=== PATIENT | male | born 1940 | race Caucasian/White ===

== ENCOUNTER 2017-05-05 22:45 | Inpatient (IN) ==
[2017-05-05 23:28] LABS: Basophils % 0.2 %; Eosinophils % 0.1 %; Hematocrit 41.2 % (37.5-50.1); Hemoglobin 13.6 g/dL (12.9-16.9); Immature Granulocytes % 0.2 % (0-4); Lymphocytes # 1.3 K/mcL (0.6-4.6); Lymphocytes % 12.5 %; Mean Corpuscular Hemoglobin 31.3 pg (28.0-33.3); Mean Corpuscular Volume 94.9 fL (83.0-100.0); Mean Platelet Volume 9.1 fL (9.4-12.4); Monocytes # 0.8 K/mcL (0.0-1.3); Monocytes % 7.3 %; Neutrophils # 8.3 K/mcL (1.6-8.9); Platelet Count 157 K/mcL (140-400); Red Blood Count 4.34 M/mcL (4.19-5.50); Red Cell Distribution Width 13.8 % (11.5-14.5); Segmented Neutrophils % 79.7 %
[2017-05-05 23:34] LABS: INR 1.1; Prothrombin Time 12.4 Seconds (9.4-12.1)
[2017-05-05 23:37] LABS: Activated Partial Thrombo Time 25.1 Seconds (26.0-36.0)
[2017-05-05 23:40] LABS: BUN/Creatinine Ratio 34 (6-26); Blood Urea Nitrogen 28 mg/dL (8-26); Calcium 9.3 mg/dL (8.6-10.8); Carbon Dioxide 23 mEq/L (19-29); Chloride 107 mEq/L (98-109); Glucose 129 mg/dL (70-99); Osmolality,Calculated 295 (280-300); Potassium 3.9 mEq/L (3.5-4.5); Sodium 139 mEq/L (136-145); eGFR For African Americans > 60 (> 60); eGFR For Non-African Americans > 60 (> 60)
--- NOTE | 2017-05-05 23:48 | Emergency Department Note ---
Disposition Clinical Impression: Fracture of hip Qualifiers: Encounter type: initial encounter Fracture type: closed Laterality: left Qualified Code(s): S72.002A - Fracture of unspecified part of neck of left femur , initial encounter for closed fracture Disposition: Admitted As Inpatient Condition: Good Forms: ED Satisfaction Letter Time of Disposition: 23:51 General Adult HPI - General Chief complaint: ED Extremity Injury, Lower Stated complaint: left hip fracture Time Seen by Provider: 05/05/17 22:47 Source: patient Mode of arrival: EMS Limitations: language barrier Nursing Notes Reviewed: Yes Vital Signs Reviewed: Yes - History of Present Illness HPI Narrative: Patient presents from the [facility] after being evaluated for a fall. Patient stumbled over his walker today following to the ground in his left hip. Sensation is unable to move his left hip without severe pain. Patient denies any head injury, loss of consciousness has some skin tears to the extremities but denies any other symptoms or complaints. [facility] evaluated and said that he had intertrochanteric fracture and sent him over here for surgical evaluation. No other issues during her evaluation. Onset (ago): Just TOURS CAPTAIN Location: left, lower extremity Radiation: non-radiation Pain Severity: moderate Pain Scale: 2 Quality: sharp Consistency: constant Improves with: immobilization, rest Worsens with: movement Associated symptoms: Reports: denies other symptoms Treatments Prior to Arrival: none - Related Data Allergies Allergy/AdvReac Type Severity Reaction Status Date / Time morphine AdvReac Hallucinati Verified 05/05/17 22:51 ng All systems ED: reviewed and negative except as stated. Cardiovascular: Denies: chest pain, palpitations, dyspnea on exertion Respiratory: Denies: cough, dyspnea, wheezes Gastrointestinal: Denies: nausea, vomiting, diarrhea, constipation Genitourinary: Denies: dysuria, frequency Musculoskeletal: Denies: back pain, neck pain Neurological: Denies: headache, weakness Endocrine: Denies: fatigue Hematological/Lymphatic: Denies: easy bleeding, easy bruising Past Medical History - Past Medical History Attestation: Yes The following information was validated with the patient. Source: patient Medical history: Reports: arthritis, DVT, hyperlipidemia, other Psychiatric history: Reports: anxiety, depression - Social History Smoking Status: Never smoker Smokeless Tobacco Status: No Alcohol use: Reports: none Drug use: Reports: none Physical Exam - General Limitations: language barrier General appearance: alert, in no apparent distress - Head Head exam: atraumatic, normocephalic, normal inspection - Eye Eye exam: Present: normal appearance, PERRL, EOMI. Absent: miosis, mydriasis - ENT ENT exam: normal exam, normal oropharynx, mucous membranes moist - Neck Neck exam: Present: normal inspection, full ROM, trachea midline. Absent: tenderness - Chest Chest inspection: Present: normal inspection, symmetric chest wall rise - Respiratory Respiratory exam: Present: normal lung sounds bilaterally - Cardiovascular Cardiovascular exam: Present: regular rate, normal rhythm, normal heart sounds - Abdominal Exam Abdominal exam: Present: soft - Extremities Exam Extremities exam: Present: normal inspection, full ROM, tenderness (Tenderness left hip with external rotation mild shortening otherwise normal exam), normal capillary refill - Back Exam Back exam: Present: normal inspection - Neurological Exam Neurological exam: Present: alert, oriented X3, CN II-XII intact - Skin Skin exam: Present: warm, dry, intact, normal color Course Course Narrative: Patient seen and examined the time of arrival by EMS. Patient seen at the [facility] for mechanical fall. Patient advised on an intertrochanteric fracture. Imaging results reviewed at the time of arrival. No labs available time. Patient is on aspirin denied any head trauma no other injuries or complaints. He is up-to-date on his tetanus within the last year. Patient has full range of motion of the right lower extremity pelvis appears to be stable left hip is tender palpation with external rotation of the hip. Capillary refills were inspected and PT pulses and good sensation is noted in the bilateral lower extremities. No signs of trauma to the chest wall lungs are clear heart is regular abdomen is soft. There is mild tenderness to the left elbow with abrasion but otherwise no other visible signs of laceration or injury. Patient has no signs of trauma to the head pupils are equal round reactive to light. Labs including type and screen, CBC, sure this time for screening evaluation. Imaging of the abdomensystem. Consult placed orthopedic on-call physician Dr. Gonsalez. He will be admitted to the hospital service for definitive management. Patient is otherwise stable family form and that controlled this plan. pain Medication be provided as needed - Reevaluation(s) Reevaluation #1: Hospitalist Dr. wellington and I reviewed the patient's presentation symptoms and medical history. No other concerns or issues at this time. Screening labs reviewed. Patient is stable to time of admission for hip fracture Time: 23:53 Vital Signs Temperature 97.6 F 05/05/17 22:46 Pulse Rate 65 05/05/17 22:46 Respiratory Rate 18 05/05/17 22:46 Blood Pressure 159/96 05/05/17 22:46 O2 Sat by Pulse Oximetry 93 05/05/17 22:46 Temperature 97.6 F 05/05/17 22:46 Pulse Rate 65 05/05/17 22:46 Respiratory Rate 18 05/05/17 22:46 Blood Pressure 159/96 05/05/17 22:46 O2 Sat by Pulse Oximetry 93 05/05/17 22:46 Oxygen Delivery Oxygen Delivery Room Air Medical Decision Making - MDM Narrative Medical decision making narrative: Left hip fracture, mechanical fall - Medical Records Medical records reviewed: Yes I reviewed the patient's medical records. - Lab Data Lab results reviewed: Yes I reviewed the patient's lab results. Result diagrams: 05/05/17 23:22 05/05/17 23:22 Lab Results 05/05/17 05/05/17 05/05/17 Range/Units 23:22 23:22 23:22 WBC 10.3 (4.3-11.1) K/mcL RBC 4.34 (4.19-5.50) M/mcL Hgb 13.6 (12.9-16.9) g/dL Hct 41.2 (37.5-50.1) % MCV 94.9 (83.0-100.0) fL MCH 31.3 (28.0-33.3) pg MCHC 33.0 (31.6-35.5) g/dL RDW 13.8 (11.5-14.5) % Plt Count 157 (140-400) K/mcL MPV 9.1 L (9.4-12.4) fL Immature Gran % 0.2 (0-4) % Seg Neutrophils % 79.7 % Lymphocytes % 12.5 % Monocytes % 7.3 % Eosinophils % 0.1 % Basophils % 0.2 % Neutrophils # 8.3 (1.6-8.9) K/mcL Lymphocytes # 1.3 (0.6-4.6) K/mcL Monocytes # 0.8 (0.0-1.3) K/mcL Eosinophils # 0.0 (0.0-0.6) K/mcL Basophils # 0.0 (0.0-0.2) K/mcL PT 12.4 H (9.4-12.1) Seconds INR 1.1 APTT 25.1 L (26.0-36.0) Seconds Sodium 139 (136-145) mEq/L Potassium 3.9 (3.5-4.5) mEq/L Chloride 107 (98-109) mEq/L Carbon Dioxide 23 (19-29) mEq/L BUN 28 H (8-26) mg/dL Creatinine 0.83 (0.72-1.25) mg/dL Est GFR ( Amer) > 60 (> 60) Est GFR (Non-Af Amer) > 60 (> 60) BUN/Creatinine Ratio 34 H (6-26) Glucose 129 H (70-99) mg/dL Calculated Osmolality 295 (280-300) Calcium 9.3 (8.6-10.8) mg/dL - Radiology Data Radiology results reviewed: Yes I reviewed the patient's radiology results. Imaging from outside hospital - EKG Data EKG #1 EKG attestation: Yes I reviewed and interpreted this EKG. EKG shows normal: sinus rhythm, axis, intervals, QRS complexes, ST-T waves Rate: normal Rhythm: NSR [place]/QRS: normal When compared to previous EKG there are: previous EKG unavailable Interpretation: nonspecific ST-T wave changes
[2017-05-06] MEDS ORDERED: *HR* HYDROmorphone (PF) 1 MG/ML SYRINGE IVP ONE (00:20)
[2017-05-06] MEDS ORDERED: *HR* OxyCODONE/APAP 5/325 TABLET PO PRN (05:49)
[2017-05-06] MEDS: *HR* HYDROmorphone (PF) 1 MG/ML SYRINGE IVP PRN ×5 (06:03→18:20)
[2017-05-06] MEDS: 0.9 % Sodium Chloride 1,000 ML IVC SCH ×2 (06:04→20:44)
--- NOTE | 2017-05-06 07:54 | Orthopedic Consult Note ---
Date of Encounter: 05/06/17 Time of Encounter: 07:53 History of Present Illness HPI: Mr. Sommers is a 77 year old male Status post fall yesterday while getting something out of his truck. Injured left hip admitted with left hip fracture from ER. Patient denies head trauma normally walks with a walker or cane. Physical exam Alert and oriented 3 Left lower extremity Shortened external rotated Neurovascular intact Decreased range of motion secondary to pain X-rays reviewed left intertrochanteric hip fracture recommendation for surgical fixation Discussed risks benefits as well as recovery with family and patient Past Med Surg Social Fam HX - Past Medical History Medical history: arthritis, DVT, hyperlipidemia, other Psychiatric history: anxiety, depression - Past Surgical History Surgical History: cholecystectomy, herniorrhaphy, orthopedic, other - Social History Smoking Status: Never smoker Smokeless Tobacco Status: No Alcohol use: none Drug use: none - Family History Mother Living Status: Hx Family Cancer: Yes (colon cancer) Brother Living Status: Hx Family Cancer: Yes (colon cancer) Medications and Allergies Allergies morphine Adverse Reaction (Verified 05/05/17 22:51) Hallucinating All Systems Reviewed: A 10-system review of systems was performed and is negative for pertinent findings except as documented above in the HPI. Physical Exam - Constitutional Vitals: Temp Pulse Resp BP Pulse Ox 97.7 F 68 16 157/86 95 05/06/17 06:33 05/06/17 06:33 05/06/17 06:33 05/06/17 06:33 05/06/17 06:33 Results - Labs Result Diagrams: 05/05/17 23:22 05/05/17 23:22 Labs: Abnormal lab results MPV 9.1 fL (9.4-12.4) L 05/05/17 23:22 PT 12.4 Seconds (9.4-12.1) H 05/05/17 23:22 APTT 25.1 Seconds (26.0-36.0) L 05/05/17 23:22 BUN 28 mg/dL (8-26) H 05/05/17 23:22 BUN/Creatinine Ratio 34 (6-26) H 05/05/17 23:22 Glucose 129 mg/dL (70-99) H 05/05/17 23:22 All other labs normal. Consult Discharge Plan - Plan [facility] Care Provider[facility] -
--- NOTE | 2017-05-06 18:26 | Internal Med History&Physical ---
Date of Encounter: 05/06/17 Time of Encounter: 18:24 Assessment and Plan (1) Fracture of hip Current visit: Yes Status: Acute Acute left intertrochanteric hip fracture status post mechanical fall. Patient does not seem to have any chronic cardiopulmonary comorbidities, good functional status. Pain control with when necessary oral oxycodone and IV Dilaudid. NPO past midnight. PT/OT evaluation post surgery. DVT prophylaxis. Patient is at low to moderate perioperative risk for planned hip fixation surgery. Qualifiers: Encounter type: initial encounter Fracture type: closed Laterality: left Qualified Code(s): S72.002A - Fracture of unspecified part of neck of left femur, initial encounter for closed fracture (2) Osteoarthritis Current visit: Yes Status: Chronic Qualifiers: Osteoarthritis location: multiple joints Osteoarthritis type: primary Qualified Code(s): M15.0 - Primary generalized (osteo)arthritis (3) Anxiety Current visit: Yes Status: Chronic continue [RN benzodiazepines. (4) Depression Current visit: Yes Status: Chronic Qualifiers: Depression Type: unspecified Qualified Code(s): F32.9 - Major depressive disorder, single episode, unspecified Internal Medicine - H&P: HPI Chief complaint: Left hip pain Admitted From: Emergency Dept Plans for Post Hospital Care: Transfer Inp Rehab Fac History of present illness: Mr. Sommers is a 77 year old male with no significant past medical history was sent from urgent care at the [facility] for evaluation of left hip pain and fracture. Patient was doing well until yesterday afternoon when he sustained a mechanical fall while ambulating with his walker and felt a sharp pain in his left hip. He has been unable to get up or bear weight on his left leg without pain. He is otherwise ADL independent, ambulates with a walker and reports that he still drives. He has no history of coronary artery disease, [place] or congestive heart failure. Reports no exertional chest pain, dyspnea, wheezing or cough. Past Med Surg Social Fam HX - Past Medical History Medical history: arthritis, DVT, hyperlipidemia, other Psychiatric history: anxiety, depression - Past Surgical History Surgical History: cholecystectomy, herniorrhaphy, knee replacement (Bilateral total knee replacement), orthopedic, other - Social History Smoking Status: Never smoker Smokeless Tobacco Status: No Alcohol use: none Drug use: none Occupational status: retired Current living situation: Home, With Family Activity Level: Uses cane/walker Recent Out of Country Travel Within the Last 8 Weeks: No - Family History Mother Living Status: Hx Family Cancer: Yes (colon cancer) Brother Living Status: Hx Family Cancer: Yes (colon cancer) Internal Medicine - H&P: Meds ALPRAZolam [Xanax 0.5 MG Tablet] 0.5 mg PO TID PRN 05/06/17 [History] Capsaicin [Arthritis Pain Relief] 1 appl TP QID 05/06/17 [History] Escitalopram [Lexapro] 10 mg PO DAILY 05/06/17 [History] Lisinopril [Zestril] 20 mg PO DAILY 05/06/17 [History] [place]-3/Dha/Epa/Fish Oil [Fish Oil 1,000 mg Softgel] 1,000 mg PO DAILY 05/06/17 [History] Omeprazole [PriLOSEC] 20 mg PO DAILY 05/06/17 [History] Ranitidine HCl [Zantac] 300 mg PO DAILY 05/06/17 [History] Selenium 200 mcg PO DAILY 05/06/17 [History] Terazosin HCl 4 mg PO HS 05/06/17 [History] Ursodiol 300 mg PO BID 05/06/17 [History] Zinc Acetate [Galzin] 50 mg PO DAILY 05/06/17 [History] Allergies morphine Adverse Reaction (Verified 05/05/17 22:51) Hallucinating All Systems PM: A 10-system review of systems was performed and is negative for pertinent findings except as documented above in the HPI. - Constitutional Constitutional: no chills, no fever(s), no night sweats - EENT Eyes: no change in vision, no discharge, no pain, no photophobia Ears: no ear discharge, no ear pain, no tinnitus Nose, mouth and throat: no dysphagia, no nasal discharge, no neck pain, no sore throat - Cardiovascular Cardiovascular ROS IM: no chest pain, no diaphoresis, no dyspnea, no lightheadedness, no palpitations, no syncope - Respiratory Respiratory: no cough, no dyspnea, no wheezing, no excessive phlegm production - Gastrointestinal Gastrointestinal: no abdominal pain, no diarrhea, no hematemesis, no hematochezia, no melena, no nausea, no vomiting - Musculoskeletal Musculoskeletal ROS IM: as per HPI, arthralgias, limited range of motion, no numbness, no tingling - Integumentary Integumentary IM: no rash, no unusual bruising - Neurological Neurological ROS: no confusion, no convulsions, no focal weakness, no numbness, no tingling, no tremor(s) - Hematologic/Lymphatic Hematologic/Lymphatic: no easy bruising - Constitutional Vitals: Temp Pulse Resp BP Pulse Ox 97.8 F 70 16 143/71 98 05/06/17 15:07 05/06/17 15:07 05/06/17 15:07 05/06/17 15:07 05/06/17 15:07 General appearance: Present: mild distress, A&O X 3, answers questions appropriately - Respiratory Respiratory exam: Present: CTAB. Absent: accessory muscle use, rales, rhonchi, wheezes - Cardiovascular Cardiovascular exam: Present: RRR, +S1, +S2. Absent: diastolic murmur, gallop, rubs, systolic murmur - GI/Abdominal GI/Abdominal exam: Present: normal bowel sounds, soft, no peritoneal signs. Absent: distended, tenderness - Extremities Exam Extremities exam: Present: full ROM (Restricted at left hip), normal inspection (Mild edema and muscle spasm in left hip and proximal thigh.), warm, radial pulses palpable and symetrical. Absent: calf tenderness, cyanotic, pedal edema - Neurological Exam Neurological exam: Present: CN II-XII intact, oriented X3, no focal deficits. Absent: pronater drift, facial droop, speech deficit - Skin Skin exam: Present: dry, intact Internal Med - H&P Results - Labs CBC & Chem 7: 05/05/17 23:22 05/05/17 23:22 - EKG Data -: EKG Interpreted by Myself EKG shows normal: sinus rhythm Rate: normal
[2017-05-06] MEDS ORDERED: Ondansetron 4 MG/2 ML VIAL IVP PRN (18:27)
[2017-05-06] MEDS ORDERED: *HR* OxyCODONE Immed Rel 5 MG TABLET PO PRN (18:27)
[2017-05-06] MEDS ORDERED: Acetaminophen 325 MG TABLET PO PRN (18:27)
[2017-05-06] MEDS ORDERED: Naloxone 0.4 MG/ML INJ IVP PRN (18:27)
[2017-05-06] MEDS ORDERED: ALPRAZolam 0.5 MG TABLET PO PRN (18:30)
[2017-05-07 04:10] LABS: Basophils % 0.3 %; Eosinophils # 0.1 K/mcL (0.0-0.6); Eosinophils % 1.3 %; Immature Granulocytes % 0.1 % (0-4); Lymphocytes # 1.5 K/mcL (0.6-4.6); Lymphocytes % 19.9 %; Mean Corpuscular HGB Conc 32.3 g/dL (31.6-35.5); Mean Corpuscular Hemoglobin 31.7 pg (28.0-33.3); Mean Platelet Volume 9.5 fL (9.4-12.4); Monocytes # 0.8 K/mcL (0.0-1.3); Monocytes % 10.1 %; Neutrophils # 5.3 K/mcL (1.6-8.9); Platelet Count 124 K/mcL (140-400); Red Blood Count 3.57 M/mcL (4.19-5.50); Red Cell Distribution Width 14.2 % (11.5-14.5); Segmented Neutrophils % 68.3 %
[2017-05-07 04:22] LABS: Hemoglobin 11.3 g/dL (12.9-16.9)
[2017-05-07 04:28] LABS: BUN/Creatinine Ratio 39 (6-26); Blood Urea Nitrogen 29 mg/dL (8-26); Calcium 8.6 mg/dL (8.6-10.8); Carbon Dioxide 26 mEq/L (19-29); Chloride 107 mEq/L (98-109); Glucose 127 mg/dL (70-99); Osmolality,Calculated 293 (280-300); Potassium 3.9 mEq/L (3.5-4.5); Sodium 138 mEq/L (136-145); eGFR For African Americans > 60 (> 60); eGFR For Non-African Americans > 60 (> 60)
[2017-05-07] MEDS ORDERED: *HR* Heparin 5,000 UNIT/ML VIAL SQ SCH (06:00)
--- NOTE | 2017-05-07 07:04 | Anesthesia Evaluation PreOp ---
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 Significant HX Other Medical History: GERD, Other (osteoarthritis) Anesthesia History: Problems (waking up disoriented (pulling out IV's, etc)) Alcohol Use: none Drug use: none Medications and Allergies ALPRAZolam [Xanax 0.5 MG Tablet] 0.5 mg PO TID PRN 05/06/17 [History] Capsaicin [Arthritis Pain Relief] 1 appl TP QID 05/06/17 [History] Escitalopram [Lexapro] 10 mg PO DAILY 05/06/17 [History] Lisinopril [Zestril] 20 mg PO DAILY 05/06/17 [History] [place]-3/Dha/Epa/Fish Oil [Fish Oil 1,000 mg Softgel] 1,000 mg PO DAILY 05/06/17 [History] Omeprazole [PriLOSEC] 20 mg PO DAILY 05/06/17 [History] Ranitidine HCl [Zantac] 300 mg PO DAILY 05/06/17 [History] Selenium 200 mcg PO DAILY 05/06/17 [History] Terazosin HCl 4 mg PO HS 05/06/17 [History] Ursodiol 300 mg PO BID 05/06/17 [History] Zinc Acetate [Galzin] 50 mg PO DAILY 05/06/17 [History] Allergies morphine Adverse Reaction (Verified 05/05/17 22:51) Hallucinating - Meds/Allergy Pre-op Review Medications Reviewed: Yes Allergies Reviewed: Yes Beta Blockers on Current Med List: No Anesthesia Results - Labs 05/07/17 03:54 05/07/17 03:54 - Imaging EKG: report reviewed, image reviewed (SR) Anesthesia Exam Last Vital Signs Temp 98.0 F 05/07/17 04:12 Pulse 83 05/07/17 04:12 Resp 18 05/07/17 04:12 BP 137/72 05/07/17 04:12 Pulse Ox 96 05/07/17 04:12 - HEENT Pupil (Motor): Pupils equal, EOMI Mallampati: III Teeth: Poor dentition Oral Opening: Greater than 3 - WEB DESIGN INSTRUCTOR LOC: Oriented WEB DESIGN INSTRUCTOR Motor: Normal RUE, Normal LUE, Normal RLE, Normal LLE, Normal Face - Cardiac Rhythm: Regular Murmur: None - Pulmonary Breath Sounds: bilateral Clear Respiratory Effort: Symmetrical Anesthesia Assess/Plan ASA Score: 2 Modified [place] Scale for Level of Consciousness: Cooperative, oriented, and tranquil Anesthetic Plan: General Monitoring Plan: Standard Monitors Recovery Plan: PACU
[2017-05-07] MEDS ORDERED: *HR* Midazolam HCl 2 MG/2 ML VIAL ONE (07:08)
[2017-05-07] MEDS ORDERED: *HR* FentaNYL (PF) 100 MCG/2 ML VIAL ONE (07:08)
[2017-05-07] MEDS ORDERED: *HR* Propofol 200 MG/20 ML VIAL IVP ONE (07:08)
[2017-05-07] MEDS ORDERED: Lidocaine -MPF 2% 2 ML VIAL ONE (07:08)
[2017-05-07] MEDS ORDERED: *HR* Phenylephrine 10 MG/ML VIAL ONE (07:09)
[2017-05-07] MEDS ORDERED: Dexamethasone 4 MG/ML VIAL ONE (07:09)
[2017-05-07] MEDS ORDERED: *HR* Succinylcholine 200 MG/10 ML VIAL IVP ONE (07:09)
[2017-05-07] MEDS ORDERED: Ondansetron 4 MG/2 ML VIAL ONE (07:09)
[2017-05-07] MEDS ORDERED: *HR* HYDROmorphone (PF) 1 MG/ML SYRINGE IVP PRN ×2 (07:43→09:39)
[2017-05-07] MEDS ORDERED: EPHEDrine 50 MG/ML VIAL ONE (08:09)
[2017-05-07] MEDS ORDERED: ceFAZolin 2,000 MG in D5% in Water (Mini-Bag+) 100 ML IVPB ONE (08:20)
[2017-05-07] MEDS ORDERED: Ketorolac 30 MG/ML VIAL ONE (08:22)
--- NOTE | 2017-05-07 08:48 | Orthopedic Operative Note ---
Date of procedure: 05/07/17 Pre-op diagnosis: Left intertrochanteric hip fracture Post-op diagnosis: same Procedure: Procedure: Left hip open reduction intramedullary nail fixation Estimated blood loss: 50 cc Hardware: Metal: Synthes 11 x 130 degree TFN, 105 helical blade, 36 distal locking bolt Operative procedure: The patient was brought to the operating room and placed on the operating room table. After general anesthesia was administered the well leg was place in the well leg benson and the operative leg was placed in the fracture leg benson. All pressure points were padded appropriately. The operative extremity was prepped and draped in the sterile surgical fashion patient received IV antibiotic prior to skin incision. A standard direct lateral approach was made over the entry point of the greater trochanter, the incision was made through the skin and subcutaneous tissue hemostasis was obtained with Bovie cautery. Using careful sharp dissection the fascia was identified and incised, flouroscopic assistance was used to identify the entry point. The guidepin was placed at the entry point using fluroscopic assistance, it was over reamed with the proximal reamer. The 11 x 130 degrees nail was placed through the entry hole, across the fracture site into the distal fragment. the position was confirmed with fluroscopy. A guide pin was placed through the proximal locking guide from the lateral femur through the nail across the fracture site into the femoral head, it was over reamed with the reamer. The 105 helical blade was placed over the guide pin through the nail into the femoral head, locked in place with the proximal locking bolt. 36 mm Distal locking bolt was placed through the distal locking guide. position of hardware and fracture reduction found to be acceptable with fluroscopic assistance. The wound was irrigated. Fascia was closed with a running #2 PDS suture. The deep tissue was irrigated and closed deep with #1 PDS suture superficially with 0 PDS suture and skin was closed with skin kori. The patient was placed in a sterile dressing The patient was extubated and transferred to the recovery room in stable condition. Anesthesia: GETA Surgeon: Cristian Gonsalez Condition: stable Disposition: PACU
[2017-05-07] MEDS ORDERED: Lisinopril 20 MG TABLET PO SCH (09:00)
--- NOTE | 2017-05-07 09:26 | Anesthesia Evaluation Post Op ---
Date of Encounter: 05/07/17 Time of Encounter: 09:25 - Vital Signs Vital Signs: Last Vital Signs Temp 98.2 F 05/07/17 08:58 Pulse 81 05/07/17 09:18 Resp 18 05/07/17 09:18 BP 157/87 05/07/17 09:18 Pulse Ox 93 05/07/17 09:18 - Lungs Lungs: Clear Ascult./Percussion - Airway Airway: Non-obstructed - Cardiovascular Regular Rate - Mental Status Mental Status: Alert & Oriented, Answers Appropriately - Pain Pain Scale: 2 - Nausea Vomiting Nausea Vomiting: Not Present - Hydration Hydration: Ice chips - Discharge PostOp Status: Transfer Patient to floor
[2017-05-07 09:29] LABS: Hematocrit 34.7 % (37.5-50.1)
[2017-05-07] MEDS ORDERED: Ondansetron 4 MG/2 ML VIAL IVP PRN (09:39)
[2017-05-07] MEDS ORDERED: *HR* OxyCODONE Immed Rel 5 MG TABLET PO PRN (09:39)
[2017-05-07] MEDS ORDERED: Acetaminophen 325 MG TABLET PO PRN (09:39)
[2017-05-07] MEDS ORDERED: Naloxone 0.4 MG/ML INJ IVP PRN (09:39)
[2017-05-07] MEDS ORDERED: 0.9 % Sodium Chloride 1,000 ML IVC SCH (09:39)
[2017-05-07] MEDS ORDERED: ALPRAZolam 0.5 MG TABLET PO PRN (09:39)
--- NOTE | 2017-05-07 16:20 | Internal Med Progress Note ---
Date of Encounter: 05/07/17 Time of Encounter: 11:30 - Assessment and plan (1) Fracture of hip Current Visit: Yes Status: Acute Assessment and plan: Pt is s/p ORIF and doing OK at this time. Continue current plan and begin discharge planning. Qualifiers: Encounter type: subsequent encounter Fracture type: closed Laterality: left Qualified Code(s): S72.002D - Fracture of unspecified part of neck of left femur, subsequent encounter for closed fracture with routine healing (2) Hypertension Current Visit: Yes Status: Chronic Assessment and plan: Meds not given this AM and BP elevated. Norvasc added. Continue to monitor and adjust as needed. Qualifiers: Hypertension type: essential hypertension Qualified Code(s): I10 - Essential (primary) hypertension (3) Osteoarthritis Current Visit: Yes Status: Chronic Assessment and plan: Supportive care. Qualifiers: Osteoarthritis location: multiple joints Osteoarthritis type: primary Qualified Code(s): M15.0 - Primary generalized (osteo)arthritis (4) Osteoporosis Current Visit: Yes Status: Suspected Assessment and plan: Second hip fracture. Suspect has some osteoporosis. Further workup/plan after discharge. Qualifiers: Osteoporosis type: age-related Presence of current pathological fracture: unspecified Qualified Code(s): M81.0 - Age-related osteoporosis without current pathological fracture (5) Depression Current Visit: Yes Status: Chronic Assessment and plan: Home meds. Qualifiers: Depression Type: unspecified Qualified Code(s): F32.9 - Major depressive disorder, single episode, unspecified (6) Anxiety Current Visit: Yes Status: Chronic - Subjective Interval history: Mr. Sommers is currently admitted for acute L hip fracture. He is s/p ORIF. He is moderate to high risk due to potential of issues with fracture and post op status. Mr Sommers is seen post op. Doing OK thus far. Concerned about IV in his hand. Pain controlled at this time. No CP or SOB. Family at bedside and have no questions. - Constitutional Vitals: Temp Pulse Resp BP Pulse Ox 97.7 F 79 17 142/78 94 05/07/17 12:43 05/07/17 12:43 05/07/17 12:43 05/07/17 12:43 05/07/17 12:43 General appearance: Present: A&O X 3, no acute distress, answers questions appropriately - Head Head exam: Present: normocephalic - Eye Eye exam: Present: EOMI, conjuntiva pink - ENT ENT exam: Present: mucous membranes dry - Respiratory Respiratory exam: Present: decreased breath sounds, CTAB. Absent: rhonchi, wheezes - Cardiovascular Cardiovascular exam: Present: RRR. Absent: tachycardia - GI/Abdominal GI/Abdominal exam: Present: soft. Absent: tenderness - Extremities Exam Extremities exam: Present: warm - Neurological Exam Neurological exam: Present: alert, oriented X3, no focal deficits - Psychiatric Psychiatric exam: Present: normal affect, normal mood - Skin Skin exam: Present: warm. Absent: rash Internal Medicine: Result - Labs CBC & Chem 7: 05/07/17 09:21 05/07/17 03:54 Labs: Short CBC 05/07/17 05/07/17 Range/Units 03:54 09:21 WBC 7.7 (4.3-11.1) K/mcL Hgb 11.3 L D 11.0 L (12.9-16.9) g/dL Hct 35.0 L 34.7 L (37.5-50.1) % Plt Count 124 L (140-400) K/mcL Neutrophils # 5.3 (1.6-8.9) K/mcL BMP 05/07/17 03:54 Sodium 138 Potassium 3.9 Chloride 107 Carbon Dioxide 26 BUN 29 H Creatinine 0.75 Glucose 127 H Calcium 8.6 - ABG Interpretation ABG results: PT/INR, D-dimer PT 12.4 Seconds (9.4-12.1) H 05/05/17 23:22 - Impressions Impressions Fluoroscopy 05/07/17 00:00 IMPRESSION: Intraprocedural fluoroscopic spot images as above. See separate procedure report for more information. D/ / Tino Parry MD / Tino Parry MD Interpreting Provider: Tino Parry MD - VTE Documentation of Mechanical Device: Venous foot pump, device Consult Discharge Plan - Plan [facility]errals: [facility] [Primary Care Provider] -
[2017-05-07] MEDS ORDERED: Chloraseptic Spray 177 ML BOTTLE MM PRN (16:52)
[2017-05-07] MEDS: *HR* Heparin 5,000 UNIT/ML VIAL SQ SCH (17:01)
[2017-05-07] MEDS: ceFAZolin 2,000 MG in D5% in Water 100 ML IVPB SCH ×2 (17:01→23:14)
[2017-05-07] MEDS: *HR* OxyCODONE/APAP 5/325 TABLET PO PRN (19:43)
[2017-05-08] MEDS: *HR* Heparin 5,000 UNIT/ML VIAL SQ SCH ×2 (04:52→17:27)
[2017-05-08 05:34] LABS: Hematocrit 30.9 % (37.5-50.1); Hemoglobin 9.9 g/dL (12.9-16.9); Mean Corpuscular Hemoglobin 31.5 pg (28.0-33.3); Mean Corpuscular Volume 98.4 fL (83.0-100.0); Mean Platelet Volume 9.7 fL (9.4-12.4); Platelet Count 114 K/mcL (140-400); Red Blood Count 3.14 M/mcL (4.19-5.50)
[2017-05-08 05:47] LABS: BUN/Creatinine Ratio 34 (6-26); Blood Urea Nitrogen 22 mg/dL (8-26); Calcium 8.7 mg/dL (8.6-10.8); Carbon Dioxide 30 mEq/L (19-29); Chloride 103 mEq/L (98-109); Glucose 127 mg/dL (70-99); Magnesium 1.7 mg/dL (1.6-2.6); Osmolality,Calculated 287 (280-300); Potassium 4.2 mEq/L (3.5-4.5); Sodium 136 mEq/L (136-145); eGFR For African Americans > 60 (> 60); eGFR For Non-African Americans > 60 (> 60)
--- NOTE | 2017-05-08 06:49 | Orthopedics Progress Note ---
Date of Encounter: 05/08/17 Time of Encounter: 06:49 Subjective Interval history: Patient was seen this morning doing well without complaints. Afebrile vital signs stable. Operative extremity: Neurovascularly intact Dressing clean dry and intact Calves nontender Assessment and plan: Continue with postoperative care Hematocrit 30 toe-touch weightbearing left lower extremity Objective Vital signs: Vital Signs Temp Pulse Resp BP Pulse Ox 05/08/17 06:30 89.1 F L 73 18 118/69 96 05/08/17 04:23 97.6 F 77 16 117/74 92 05/08/17 00:12 97.5 F L 75 14 116/72 93 05/07/17 19:51 98.4 F 75 16 129/76 95 05/07/17 14:39 97.9 F 81 16 144/73 95 05/07/17 12:43 97.7 F 79 17 142/78 94 05/07/17 11:32 97.6 F 78 17 144/79 94 05/07/17 10:42 97.7 F 77 18 164/88 93 05/07/17 10:07 97.6 F 81 20 158/85 94 05/07/17 09:35 97.6 F 78 19 164/90 92 05/07/17 09:28 98.9 F 77 18 154/87 94 05/07/17 09:18 81 18 157/87 93 05/07/17 09:08 82 18 153/86 99 05/07/17 08:58 98.2 F 75 14 157/92 100 05/07/17 07:15 98.3 F 87 16 129/81 95 Intake and Output 05/07/17 05/07/17 05/08/17 15:59 23:59 07:59 Intake Total 300 / 300 1280 / 1280 Output Total 275 / 275 675 / 675 225 / 225 Balance 25 / 25 605 / 605 -225 / -225 Intake: IV Fluids 200 / 200 Ancef 2,000 MG In 200 / 200 Dextrose 5% 100 ML @ 200 mls/hr IVPB Q8H PENDING SALE TO [facility] Rx#: [id number] Oral 300 / 300 1080 / 1080 Output: Urine 225 / 225 675 / 675 225 / 225 Wound Drainage 50 / 50 Other: Meal Dinner Percent of Meal Consumed 100% # Voids 1 # Urine Diapers 1 Weight 97.8 kg Patient Weight 05/08/17 23:59 Weight 97.8 kg - Labs CBC & BMP: 05/08/17 04:42 05/08/17 04:42 Labs: Abnormal lab results RBC 3.14 M/mcL (4.19-5.50) L 05/08/17 04:42 Hgb 9.9 g/dL (12.9-16.9) L 05/08/17 04:42 Hct 30.9 % (37.5-50.1) L 05/08/17 04:42 Plt Count 114 K/mcL (140-400) L 05/08/17 04:42 PT 12.4 Seconds (9.4-12.1) H 05/05/17 23:22 APTT 25.1 Seconds (26.0-36.0) L 05/05/17 23:22 Carbon Dioxide 30 mEq/L (19-29) H 05/08/17 04:42 Creatinine 0.65 mg/dL (0.72-1.25) L 05/08/17 04:42 BUN/Creatinine Ratio 34 (6-26) H 05/08/17 04:42 Glucose 127 mg/dL (70-99) H 05/08/17 04:42 - VTE Documentation of Mechanical Device: Venous foot pump, device Consult Discharge Plan - Plan Referrals: [facility] [Primary Care Provider] -
[2017-05-08] MEDS: Lisinopril 20 MG TABLET PO SCH (08:13)
[2017-05-08] MEDS: amLODIPine 5 MG TABLET PO SCH (08:13)
[2017-05-08] MEDS: *HR* OxyCODONE/APAP 5/325 TABLET PO PRN ×3 (08:17→21:00)
--- NOTE | 2017-05-08 09:47 | Internal Med Progress Note ---
<Tony Mcconnell - Last Filed: 05/08/17 18:02> Date of Encounter: 05/08/17 Time of Encounter: 09:45 - Assessment and plan (1) Fracture of hip Current Visit: Yes Status: Acute Assessment and plan: Pt is s/p ORIF and doing OK at this time. Continue current plan and begin discharge planning. Qualifiers: Encounter type: subsequent encounter Fracture type: closed Laterality: left Fracture healing: with routine healing Qualified Code(s): S72.002D - Fracture of unspecified part of neck of left femur, subsequent encounter for closed fracture with routine healing (2) Anemia Current Visit: Yes Status: Acute Assessment and plan: Likely secondary to surgical blood loss -Hgb 9.9, Hct 30.9 Qualifiers: Anemia type: other cause Qualified Code(s): D62 - Acute posthemorrhagic anemia (3) Osteoarthritis Current Visit: Yes Status: Chronic Assessment and plan: Supportive care. Qualifiers: Osteoarthritis location: multiple joints Osteoarthritis type: primary Qualified Code(s): M15.0 - Primary generalized (osteo)arthritis (4) Hypertension Current Visit: Yes Status: Chronic Assessment and plan: Meds not given this AM and BP elevated. Norvasc added. Continue to monitor and adjust as needed. Qualifiers: Hypertension type: essential hypertension Qualified Code(s): I10 - Essential (primary) hypertension (5) Osteoporosis Current Visit: Yes Status: Suspected Assessment and plan: Second hip fracture. Suspect has some osteoporosis. Further workup/plan after discharge. Qualifiers: Osteoporosis type: age-related Presence of current pathological fracture: unspecified Qualified Code(s): M81.0 - Age-related osteoporosis without current pathological fracture (6) DVT prophylaxis Current Visit: Yes Status: Acute Assessment and plan: SQ Heparin - Constitutional Vitals: Temp Pulse Resp BP Pulse Ox 98.1 F 73 18 118/69 96 05/08/17 06:30 05/08/17 06:30 05/08/17 06:30 05/08/17 06:30 05/08/17 06:30 General appearance: Present: A&O X 3, no acute distress, answers questions appropriately Internal Medicine: Result - Labs CBC & Chem 7: 05/08/17 04:42 05/08/17 04:42 Labs: Short CBC 05/08/17 Range/Units 04:42 WBC 9.1 (4.3-11.1) K/mcL Hgb 9.9 L (12.9-16.9) g/dL Hct 30.9 L (37.5-50.1) % Plt Count 114 L (140-400) K/mcL BMP 05/08/17 04:42 Sodium 136 Potassium 4.2 Chloride 103 Carbon Dioxide 30 H BUN 22 Creatinine 0.65 L Glucose 127 H Calcium 8.7 - ABG Interpretation ABG results: PT/INR, D-dimer PT 12.4 Seconds (9.4-12.1) H 05/05/17 23:22 - VTE Documentation of Mechanical Device: Venous foot pump, device Consult Discharge Plan - Plan Referrals: [facility] [Primary Care Provider] - <Morris Anderson - Last Filed: 05/08/17 18:57> Date of Encounter: 05/08/17 - Assessment and plan (1) Anemia Current Visit: Yes Status: Acute Qualifiers: Anemia type: other cause Other causes of anemia: acute posthemorrhagic Qualified Code(s): D62 - Acute posthemorrhagic anemia (2) Hypertension Current Visit: Yes Status: Chronic Qualifiers: Hypertension type: essential hypertension Qualified Code(s): I10 - Essential (primary) hypertension (3) Fracture of hip Current Visit: Yes Status: Acute Qualifiers: Encounter type: subsequent encounter Fracture type: closed Laterality: left Fracture healing: with routine healing Qualified Code(s): S72.002D - Fracture of unspecified part of neck of left femur, subsequent encounter for closed fracture with routine healing (4) Osteoarthritis Current Visit: Yes Status: Chronic Qualifiers: Osteoarthritis location: multiple joints Osteoarthritis type: primary Qualified Code(s): M15.0 - Primary generalized (osteo)arthritis (5) Osteoporosis Current Visit: Yes Status: Suspected Qualifiers: Osteoporosis type: age-related Presence of current pathological fracture: unspecified Qualified Code(s): M81.0 - Age-related osteoporosis without current pathological fracture (6) Depression Current Visit: Yes Status: Chronic Qualifiers: Depression Type: unspecified Qualified Code(s): F32.9 - Major depressive disorder, single episode, unspecified (7) Anxiety Current Visit: Yes Status: Chronic - Constitutional Vitals: Temp Pulse Resp BP Pulse Ox 98.4 F 74 18 110/66 95 05/08/17 15:26 05/08/17 15:26 05/08/17 15:26 05/08/17 15:26 05/08/17 15:26 Internal Medicine: Result - Labs CBC & Chem 7: 05/08/17 04:42 05/08/17 04:42 Labs: Short CBC 05/08/17 Range/Units 04:42 WBC 9.1 (4.3-11.1) K/mcL Hgb 9.9 L (12.9-16.9) g/dL Hct 30.9 L (37.5-50.1) % Plt Count 114 L (140-400) K/mcL BMP 05/08/17 04:42 Sodium 136 Potassium 4.2 Chloride 103 Carbon Dioxide 30 H BUN 22 Creatinine 0.65 L Glucose 127 H Calcium 8.7 - ABG Interpretation ABG results: PT/INR, D-dimer PT 12.4 Seconds (9.4-12.1) H 05/05/17 23:22 - Attending Attestation I examined this patient and my medical decision-making was reviewed with the Resident Physician on 05/08/17. I agree with the documented findings, disposition and treatment plan as described except to the extent set forth below. Mr. Sommers is currently admitted for acute L hip fracture. He is s/p ORIF. He remains moderate to high risk due to potential for worsening issues with BP and anemia. Mr. Sommers feels OK at this time. He is very tired after therapy and had a lot of pain. No fever or chills. No GI symptoms. BP better with starting meds. Exam Alert. Comfortable Mucus membranes moist Heart reg No wheeze Abd soft No edema I/P 1. Hip fracture s/p ORIF 2. Blood loss anemia acute 3. HTN Further diagnoses and plan as above.
--- NOTE | 2017-05-08 10:07 | Electrocardiograph Report ---
[place] [id number] Test Date: 2017-05-05 Pat Name: Cy Sommers Department: 105 Room: [facility] Gender: M Electrician Constructor Supervisor: : 1940 Requested By: Rivera Cali Order Number: [id number] Reading MD: Manav Rizvi MD Measurements Intervals [place] Rate: 65 P: 42 MS: 215 QRS: -17 QRSD: 89 T: 63 QT: 402 QTc: 414 Interpretive Statements SINUS RHYTHM WITH FIRST DEGREE AV BLOCK BASELINE ARTIFACT Electronically Signed On 05-08-2017 10:05:44 EDT by Manav Rizvi MD
[2017-05-09] MEDS: *HR* Heparin 5,000 UNIT/ML VIAL SQ SCH (05:41)
--- NOTE | 2017-05-09 06:49 | Orthopedics Progress Note ---
Date of Encounter: 05/09/17 Time of Encounter: 06:48 Subjective Interval history: Patient was seen this morning doing well without complaints. Afebrile vital signs stable. Operative extremity: Neurovascularly intact Dressing clean dry and intact Calves nontender Assessment and plan: Continue with postoperative care Stable for discharge Objective Vital signs: Vital Signs Temp Pulse Resp BP Pulse Ox 05/09/17 06:45 98.1 F 81 16 120/74 93 05/09/17 06:00 97.5 F L 84 16 120/74 91 05/08/17 23:34 98.2 F 79 18 114/71 91 05/08/17 20:42 99.4 F 86 17 117/73 92 05/08/17 15:26 98.4 F 74 18 110/66 95 05/08/17 11:38 97.5 F L 69 18 111/67 95 Intake and Output 05/08/17 05/08/17 05/09/17 15:59 23:59 07:59 Intake Total 480 / 480 830 / 830 200 / 200 Output Total 250 / 250 200 / 200 250 / 250 Balance 230 / 230 630 / 630 -50 / -50 Intake: Oral 480 / 480 830 / 830 200 / 200 Output: Urine 250 / 250 200 / 200 250 / 250 Other: Meal Breakfast Dinner Percent of Meal Consumed 100% 100% # Voids 1 - Labs CBC & BMP: 05/08/17 04:42 05/08/17 04:42 Labs: Abnormal lab results RBC 3.14 M/mcL (4.19-5.50) L 05/08/17 04:42 Hgb 9.9 g/dL (12.9-16.9) L 05/08/17 04:42 Hct 30.9 % (37.5-50.1) L 05/08/17 04:42 Plt Count 114 K/mcL (140-400) L 05/08/17 04:42 PT 12.4 Seconds (9.4-12.1) H 05/05/17 23:22 APTT 25.1 Seconds (26.0-36.0) L 05/05/17 23:22 Carbon Dioxide 30 mEq/L (19-29) H 05/08/17 04:42 Creatinine 0.65 mg/dL (0.72-1.25) L 05/08/17 04:42 BUN/Creatinine Ratio 34 (6-26) H 05/08/17 04:42 Glucose 127 mg/dL (70-99) H 05/08/17 04:42 - VTE Documentation of Mechanical Device: Venous foot pump, device Consult Discharge Plan - Plan [facility]errals: [facility] [Primary Care Provider] -
[2017-05-09] MEDS: Lisinopril 20 MG TABLET PO SCH (08:43)
[2017-05-09] MEDS: amLODIPine 5 MG TABLET PO SCH (08:43)
[2017-05-09] MEDS: *HR* OxyCODONE/APAP 5/325 TABLET PO PRN ×2 (08:43→15:00)
[2017-05-09 09:01] LABS: Basophils % 0.5 %; Eosinophils # 0.2 K/mcL (0.0-0.6); Eosinophils % 2.2 %; Hematocrit 30.8 % (37.5-50.1); Immature Granulocytes % 0.2 % (0-4); Lymphocytes # 2.1 K/mcL (0.6-4.6); Lymphocytes % 26.5 %; Mean Corpuscular HGB Conc 32.5 g/dL (31.6-35.5); Mean Corpuscular Hemoglobin 31.5 pg (28.0-33.3); Mean Corpuscular Volume 97.2 fL (83.0-100.0); Mean Platelet Volume 9.4 fL (9.4-12.4); Monocytes # 0.7 K/mcL (0.0-1.3); Neutrophils # 4.9 K/mcL (1.6-8.9); Platelet Count 137 K/mcL (140-400); Red Blood Count 3.17 M/mcL (4.19-5.50); Red Cell Distribution Width 13.9 % (11.5-14.5); Segmented Neutrophils % 61.6 %
[2017-05-09 09:17] LABS: BUN/Creatinine Ratio 31 (6-26); Blood Urea Nitrogen 22 mg/dL (8-26); Calcium 8.8 mg/dL (8.6-10.8); Carbon Dioxide 32 mEq/L (19-29); Chloride 102 mEq/L (98-109); Glucose 115 mg/dL (70-99); Osmolality,Calculated 288 (280-300); Potassium 3.8 mEq/L (3.5-4.5); Sodium 137 mEq/L (136-145); eGFR For African Americans > 60 (> 60); eGFR For Non-African Americans > 60 (> 60)
--- NOTE | 2017-05-09 10:37 | Internal Med Progress Note ---
Date of Encounter: 05/09/17 Time of Encounter: 09:15 - Assessment and plan (1) Fracture of hip Current Visit: Yes Status: Acute Qualifiers: Encounter type: subsequent encounter Fracture type: closed Laterality: left Fracture healing: with routine healing Qualified Code(s): S72.002D - Fracture of unspecified part of neck of left femur, subsequent encounter for closed fracture with routine healing (2) Anemia Current Visit: Yes Status: Acute Qualifiers: Anemia type: other cause Other causes of anemia: acute posthemorrhagic Qualified Code(s): D62 - Acute posthemorrhagic anemia (3) Osteoarthritis Current Visit: Yes Status: Chronic Qualifiers: Osteoarthritis location: multiple joints Osteoarthritis type: primary Qualified Code(s): M15.0 - Primary generalized (osteo)arthritis (4) Hypertension Current Visit: Yes Status: Chronic Qualifiers: Hypertension type: essential hypertension Qualified Code(s): I10 - Essential (primary) hypertension (5) Osteoporosis Current Visit: Yes Status: Suspected Qualifiers: Osteoporosis type: age-related Presence of current pathological fracture: unspecified Qualified Code(s): M81.0 - Age-related osteoporosis without current pathological fracture (6) DVT prophylaxis Current Visit: Yes Status: Acute - Constitutional Vitals: Temp Pulse Resp BP Pulse Ox 98.1 F 81 16 120/74 93 05/09/17 06:45 05/09/17 06:45 05/09/17 06:45 05/09/17 06:45 05/09/17 06:45 General appearance: Present: A&O X 3, no acute distress, answers questions appropriately Internal Medicine: Result - Labs CBC & Chem 7: 05/09/17 08:21 05/09/17 08:21 Labs: Short CBC 05/09/17 Range/Units 08:21 WBC 8.0 (4.3-11.1) K/mcL Hgb 10.0 L (12.9-16.9) g/dL Hct 30.8 L (37.5-50.1) % Plt Count 137 L (140-400) K/mcL Neutrophils # 4.9 (1.6-8.9) K/mcL BMP 05/09/17 08:21 Sodium 137 Potassium 3.8 Chloride 102 Carbon Dioxide 32 H BUN 22 Creatinine 0.70 L Glucose 115 H Calcium 8.8 - ABG Interpretation ABG results: PT/INR, D-dimer PT 12.4 Seconds (9.4-12.1) H 05/05/17 23:22 - VTE Documentation of Mechanical Device: Venous foot pump, device Consult Discharge Plan - Plan Referrals: [facility] [Primary Care Provider] -
--- NOTE | 2017-05-09 13:31 | Discharge Summary ---
<Tony Dan - Last Filed: 05/09/17 13:31> Date of Encounter: 05/09/17 Time of Encounter: 09:30 - Discharge Diagnosis (1) Fracture of hip Priority: Primary Status: Acute Qualifiers: Encounter type: subsequent encounter Fracture type: closed Laterality: left Fracture healing: with routine healing Qualified Code(s): S72.002D - Fracture of unspecified part of neck of left femur, subsequent encounter for closed fracture with routine healing (2) Anemia Priority: Primary Status: Acute Qualifiers: Anemia type: other cause Other causes of anemia: acute posthemorrhagic Qualified Code(s): D62 - Acute posthemorrhagic anemia (3) Hypertension Priority: Primary Status: Chronic Qualifiers: Hypertension type: essential hypertension Qualified Code(s): I10 - Essential (primary) hypertension (4) Osteoarthritis Priority: Primary Status: Chronic Qualifiers: Osteoarthritis location: multiple joints Osteoarthritis type: primary Qualified Code(s): M15.0 - Primary generalized (osteo)arthritis (5) Osteoporosis Priority: Primary Status: Suspected Qualifiers: Osteoporosis type: age-related Presence of current pathological fracture: unspecified Qualified Code(s): M81.0 - Age-related osteoporosis without current pathological fracture (6) DVT prophylaxis Priority: Secondary Status: Acute - Discharge Medications Prescriptions: OxyCODONE Immed Rel [Roxicodone 5 MG] 5 mg PO Q6HR PRN #20 tab PRN Reason: Pain Aspirin Enteric Coated [Aspirin EC] 162 mg PO DAILY #30 tablet.dr Home Medications: ALPRAZolam [Xanax 0.5 MG Tablet] 0.5 mg PO TID PRN 05/06/17 [History] Capsaicin [Arthritis Pain Relief] 1 appl TP QID 05/06/17 [History] Escitalopram [Lexapro] 10 mg PO DAILY 05/06/17 [History] Lisinopril [Zestril] 20 mg PO DAILY 05/06/17 [History] [place]-3/Dha/Epa/Fish Oil [Fish Oil 1,000 mg Softgel] 1,000 mg PO DAILY 05/06/17 [History] Omeprazole [PriLOSEC] 20 mg PO DAILY 05/06/17 [History] Ranitidine HCl [Zantac] 300 mg PO DAILY 05/06/17 [History] Selenium 200 mcg PO DAILY 05/06/17 [History] Terazosin HCl 4 mg PO HS 05/06/17 [History] Ursodiol 300 mg PO BID 05/06/17 [History] Zinc Acetate [Galzin] 50 mg PO DAILY 05/06/17 [History] Acetaminophen [Tylenol] 650 mg PO Q6HR PRN tab 05/09/17 [Rx] Aspirin Enteric Coated [Aspirin EC] 162 mg PO DAILY #30 tablet. 05/09/17 [Rx] OxyCODONE Immed Rel [Roxicodone 5 MG] 5 mg PO Q6HR PRN #20 tab 05/09/17 [Rx] Allergies/Adverse Reactions: Allergies morphine Adverse Reaction (Verified 05/05/17 22:51) Hallucinating Date of admission: 05/06/17 00:17 [facility] physician: [facility] Consults: 05/06/17 01:50 Consult to Nutrition [CONS] Routine Comment: Consulting Provider: NUTRITION Reason for Dietary Consult: MST Score 05/07/17 09:39 Consult to Occupational Therapy [CONS] Routine Comment: Evaluate, develop and implement POC Reason for Consult: post hip surgery Consult to Orthopedic Navigator [CONS] [CONS] Routine Consult to Physical Therapy [CONS] Routine Comment: Evaluate, develop and implement POC Reason for Consult: post hip surgery Consult to Grease Cup Filler [CONS] Routine Reason for SW Consult: post -op hip fracture RT Post Op Consult [CONS] Routine 05/08/17 12:41 Consult to Discharge Planning [CONS] Routine Comment: Discharging clinician: Tony Dan Anticipated date of discharge: 05/09/17 - Patient Status Disposition: Transfer Inpatient Rehab Fac Condition: Good Overall status at discharge: patient is progressing back to baseline - Discharge Instructions Follow Up With: Lida Becerra PAC [Physician Rf Engineer] - 05/24/17 10:00 am Additional Instructions: Continue physical therapy per inpatient rehabilitation As needed pain medication with 5 mg oxycodone immediate release every 6 hours when necessary Follow-up with your PCP in 1-2 weeks (you need to call to schedule appt) Follow-up with orthopedic surgery in 2-4 weeks (has been scheduled) Return to emergency room if redevelopment of pain in extremity, new pain in extremity, development of shortness of breath, development of fever/chill Monitor for signs and symptoms of infection: increased drainage, pain, redness, foul odor. - Diet and Activity Activity: as per physical therapy Diet: advance to your usual diet Interval History: Patient seen and examined while he is seated comfortably in the chair next to his bed. He reports that the pain in his knee is better today, but he is continuing to have some soreness in his left hip. He denies any other concerns/ complaints. He states he is comfortable with no chest pain, nausea/vomiting, abdominal pain, or extremity pain other than what is listed Hospital course: Mr. Sommers is a 77 year old male with prior medical history of DVTs, osteoarthritis, hyperlipidemia, who is undergone prior hip surgery (outside) who was sent to [facility] in the [place] for evaluation of left hip pain and fracture after suffering a mechanical fall while ambulating. He underwent left hip open reduction with intramedullary nail fixation on 05/07/17. The procedure was uncomplicated and he tolerated it well. He had several days of postoperative care in the hospital with no new acute complaints or concerns. He continued having some soreness in his left hip following the procedure as well as some pain in his left knee and this had previously. He began PT/OT in the hospital with plans of being discharged to inpatient rehabilitation. He was deemed stable for discharge per orthopedic surgery on 05/09/17 and without any apparent medical complications at this time he is safe/stable for discharge to an inpatient rehabilitation facility. - Time Spent with Patient Total time spent providing and/or coordinating discharge services: - Constitutional Vitals: Temp Pulse Resp BP Pulse Ox 98.2 F 82 18 114/72 93 05/09/17 11:00 05/09/17 11:00 05/09/17 11:00 05/09/17 11:00 05/09/17 11:00 General appearance: Present: A&O X 3, no acute distress, answers questions appropriately Exam: General: Cooperative, pleasant, no acute distress, alert and oriented 3, answers questions appropriately HEENT: Normocephalic, atraumatic,Conjunctiva pink, sclera anicteric oral mucosa moist Respiratory: No accessory muscle usage, clear to auscultation bilaterally, no wheezes/rhonchi/rales appreciated Cardiovascular: Regular rate and rhythm, S1 and S2 present, no murmurs/rubs/ gallops/clicks appreciated GI/abdominal: Nondistended, nontender, soft, normal bowel sounds, no peritoneal signs Extremities: Mild tenderness present in left knee and left hip to palpation, no pedal edema appreciated, warm, lower extremity pulses palpable and symmetrical Neurological: Alert and oriented 3, no facial droop, no focal deficits Skin: Dry, intact, normal color - VTE Documentation of Mechanical Device: Venous foot pump, device <Georges Perry P - Last Filed: 05/09/17 20:21> Date of Encounter: 05/09/17 Date of admission: 05/06/17 00:17 Primary care physician: [facility] Consults: 05/06/17 01:50 Consult to Nutrition [CONS] Routine Comment: Consulting Provider: NUTRITION Reason for Dietary Consult: MST Score 05/07/17 09:39 Consult to Occupational Therapy [CONS] Routine Comment: Evaluate, develop and implement POC Reason for Consult: post hip surgery Consult to Orthopedic Navigator [CONS] [CONS] Routine Consult to Physical Therapy [CONS] Routine Comment: Evaluate, develop and implement POC Reason for Consult: post hip surgery Consult to Grease Cup Filler [CONS] Routine Reason for SW Consult: post -op hip fracture RT Post Op Consult [CONS] Routine 05/08/17 12:41 Consult to Discharge Planning [CONS] Routine Comment: Hospital course: Mr. Sommers is a 77 year old male - Time Spent with Patient Total time spent providing and/or coordinating discharge services: - Constitutional Vitals: Temp Pulse Resp BP Pulse Ox 98.8 F 89 18 123/77 93 05/09/17 14:00 05/09/17 14:00 05/09/17 14:00 05/09/17 14:00 05/09/17 14:00 - Attending Attestation I examined this patient and my medical decision-making was reviewed with the Resident Physician. I agree with the documented findings, disposition and treatment plan as described except to the extent set forth below.
--- NOTE | 2017-05-09 13:59 | Physician Discharge Referral ---
<Tony Dan - Last Filed: 05/09/17 13:55> [facility] Referral Info Transfer To: [facility] Provider in Charge after Transfer: PCP Institutional Level of Care: Skilled - Diagnosis (1) Fracture of hip Priority: Primary Status: Acute (2) Anemia Priority: Primary Status: Acute (3) Hypertension Priority: Primary Status: Chronic (4) Osteoarthritis Priority: Primary Status: Chronic (5) Osteoporosis Priority: Primary Status: Suspected (6) DVT prophylaxis Priority: Secondary Status: Acute - Transfer Medications Prescriptions: OxyCODONE Immed Rel [Roxicodone 5 MG] 5 mg PO Q6HR PRN #20 tab PRN Reason: Pain Aspirin Enteric Coated [Aspirin EC] 162 mg PO DAILY #30 tablet.dr [place] Medications: ALPRAZolam [Xanax 0.5 MG Tablet] 0.5 mg PO TID PRN 05/06/17 [History] Capsaicin [Arthritis Pain Relief] 1 appl TP QID 05/06/17 [History] Escitalopram [Lexapro] 10 mg PO DAILY 05/06/17 [History] Lisinopril [Zestril] 20 mg PO DAILY 05/06/17 [History] [place]-3/Dha/Epa/Fish Oil [Fish Oil 1,000 mg Softgel] 1,000 mg PO DAILY 05/06/17 [History] Omeprazole [PriLOSEC] 20 mg PO DAILY 05/06/17 [History] Ranitidine HCl [Zantac] 300 mg PO DAILY 05/06/17 [History] Selenium 200 mcg PO DAILY 05/06/17 [History] Terazosin HCl 4 mg PO HS 05/06/17 [History] Ursodiol 300 mg PO BID 05/06/17 [History] Zinc Acetate [Galzin] 50 mg PO DAILY 05/06/17 [History] Acetaminophen [Tylenol] 650 mg PO Q6HR PRN tab 05/09/17 [Rx] Aspirin Enteric Coated [Aspirin EC] 162 mg PO DAILY #30 tablet. 05/09/17 [Rx] OxyCODONE Immed Rel [Roxicodone 5 MG] 5 mg PO Q6HR PRN #20 tab 05/09/17 [Rx] Allergies/Adverse Reactions: Allergies morphine Adverse Reaction (Verified 05/05/17 22:51) Hallucinating - Respiratory Orders Smoking Cessation: Smoking cessation has been advised. For more information, call the [place] Tobacco Quit Line at 8-358-WEGU-AQI. - Advance Directives Code Status: Full Code - Rehabiliation Orders Rehab Potential: Good Rehab Orders: Evaluation for Physical Therapy, Evaluation for Occupational Therapy - Diet Orders Regular CERTIFICATION: I certify that the transfer of the above named patient to an Extended Care Facility is necessary for the continuing treatment of the diagnosis listed. The above information is true and accurate reflection of patient's current condition. Confidential - Redisclosure prohibited without a patient's written consent. <Georges Perry P - Last Filed: 05/09/17 20:21> - Respiratory Orders Smoking Cessation: Smoking cessation has been advised. For more information, call the [place] Tobacco Quit Line at 1-118-FDFR-VYY. CERTIFICATION: I certify that the transfer of the above named patient to an Extended Care Facility is necessary for the continuing treatment of the diagnosis listed. The above information is true and accurate reflection of patient's current condition. Confidential - Redisclosure prohibited without a patient's written consent.
[2017-05-09 15:06] VITALS: BP 123/77
== END 2017-05-09 17:07 | DRG 482 ==
LOC: EMEROO 22:45 → 3NENU 05-06 00:17 → SUATTDRO 05-06 00:17 → 3NENU 05-06 00:37
PROVIDERS: ADMIT Internal Medicine; ATTEND Internal Medicine